=== PATIENT | male | born 1995 | race Caucasian/White ===

== ENCOUNTER 2021-02-13 17:54 | Emergency (ER) | payer MEDICAID, OTHER ==
[~2021-02-13] VITALS: Ht 182.9 cm; Wt 144.2 kg
[~2021-02-13 17:54] MED LIST: DEXT10TA7 PO
--- NOTE | 2021-02-13 20:54 | NUR ---
WITH ASSESSMENT PATIENT REPORTS LEFT UPPER QUDRANT "JUST BELOW AND UNDER MY LEFT RIB" ACHE THAT IS PULSITILE. WITH EXAM PATIENT WITH GOOD COLOR, VSS, NO BRUISING UA COLLECTED. ULTRASOUND ALREADY COMPLETE UPDATED ON ESTIMATED POC
[2021-02-13 20:56] VITALS: BP 138/79
[2021-02-13 21:07] LABS: MICROSCOPIC NOT IND
--- NOTE | 2021-02-13 21:56 | NUR ---
CARE ASSUMED FOR DC. PT DC'D HOME WITH RX X 1 AND UNDERSTANDING OF INSTRUCTIONS. PT ESCORTED TO DC DESK, GAIT STEADY.
== END 2021-02-13 21:59 | disposition home or self-care (01) ==
LOC: ED 18:24
DX: S39.011A Strain of muscle, fascia and tendon of abdomen, initial encounter (principal); S29.012A Strain of muscle and tendon of back wall of thorax, initial encounter; R00.2 Palpitations; R94.31 Abnormal electrocardiogram [ECG] [EKG]; W01.0XXA Fall on same level from slipping, tripping and stumbling without subsequent striking against object, initial encounter; Y93.89 Activity, other specified; Y92.009 Unspecified place in unspecified non-institutional (private) residence as the place of occurrence of the external cause; Y99.8 Other external cause status
CPT/HCPCS: 76705; 81003; 93005; 99285